=== PATIENT | male | born 1980 | race Caucasian/White ===

== ENCOUNTER 2021-10-08 18:38 | Emergency (ER) | payer OTHER ==
[2021-10-08 18:45] VITALS: BP 172/82; PULSE 74; TEMP 98.6; BMI 27.7
[2021-10-08] MEDS ORDERED: DIPHTH,PERTUSS(ACELL),TET 0.5 ML DISP.SYRIN IM ONE ×2 (20:49→21:24)
== END 2021-10-08 22:11 | disposition home or self-care (01) ==
LOC: JER 18:38 → JERFT 18:38 → JER 22:11
PROC: 3E0234Z Introduction of Serum, Toxoid and Vaccine into Muscle, Percutaneous Approach (ICD-10-PCS; principal; 2021-10-08)
DX: S61.201A Unspecified open wound of left index finger without damage to nail, initial encounter (principal); W26.8XXA Contact with other sharp object(s), not elsewhere classified, initial encounter
CPT/HCPCS: 90715; 99282-25

== ENCOUNTER 2023-04-04 04:30 | Day surgery (SDC) | payer OTHER ==
[2023-03-31 16:43] VITALS: BMI 27.7
[2023-04-04 08:52] VITALS: RESP 18
[2023-04-04] MEDS ORDERED: LIDOCAINE HCL 1%, 10 MG/ML (20ML VIAL) ONE ×2 (11:45→14:07)
[2023-04-04] MEDS ORDERED: BUPIVACAINE HCL/PF 0.5% (5MG/ML) 10 ML VIAL ONE (11:45)
[2023-04-04] MEDS ORDERED: FENTANYL CITRATE/PF 50 MCG/ML VIAL ONE ×2 (11:51→12:41)
[2023-04-04] MEDS ORDERED: PROPOFOL 20 ML ONE ×2 (11:52→12:38)
[2023-04-04] MEDS ORDERED: MIDAZOLAM HCL 2 MG/2 ML SINGLE DOSE VIAL ONE (11:52)
[2023-04-04] MEDS ORDERED: ceFAZolin 2 GRAM PREMIX BAG IVPB ONE (12:32)
[2023-04-04] MEDS ORDERED: LIDOCAINE HCL 1%, 10 MG/ML (20ML VIAL) INF ONE (12:38)
[2023-04-04] MEDS ORDERED: DEXAMETHASONE SOD PHOSPHATE 4 MG/1 ML VIAL ONE (13:08)
[2023-04-04] MEDS ORDERED: KETOROLAC TROMETHAMINE 30 MG/1 ML VIAL ONE (13:08)
[2023-04-04] MEDS ORDERED: ceFAZolin SODIUM 1 GM VIAL ONE (13:08)
[2023-04-04] MEDS ORDERED: ONDANSETRON 4 MG/2 ML VIAL ONE (13:08)
[2023-04-04 15:02] VITALS: BP 123/81; PULSE 58; TEMP 98
== END 2023-04-04 14:40 | disposition home or self-care (01) ==
LOC: JASU-SURG 04:30
PROVIDERS: ATTEND Urology
PROC: 0VBQ0ZZ Excision of Bilateral Vas Deferens, Open Approach (ICD-10-PCS; principal; 2023-04-04 10:30)
DX: Z30.2 Encounter for sterilization (principal)
CPT/HCPCS: 88302-TC